=== PATIENT | female | born 1950 | race Caucasian/White ===

== ENCOUNTER → 2016-08-30 | Outpatient (CLI) | payer OTHER ==
--- NOTE | 2016-08-30 14:32 | RAD ---
EXAM DESCRIPTION: Chest,2 Views CLINICAL HISTORY: 66 yearsFemale, EMPHYSEMA COMPARISON: June 07, 2016. IMPRESSION: Heart size and pulmonary vascularity are within normal limits. There is no airspace consolidation, pleural effusion, or pneumothorax. No acute osseous abnormality. Electronically signed by: Joshua Thomas MD 08/30/2016 2:31 PM [facility]
== END | disposition home or self-care (01) ==
LOC: YCFC.O 12:07
PROVIDERS: ATTEND Nurse Practitioner Family
DX: J43.9 Emphysema, unspecified (principal); R06.00 Dyspnea, unspecified; R04.2 Hemoptysis; Z87.891 Personal history of nicotine dependence

== ENCOUNTER 2017-01-08 09:43 | Emergency (ER) | payer OTHER ==
[2017-01-08] MEDS ORDERED: MORPHINE SULFATE INJ 10 MG/ML VIAL IM ONE ×2 (10:03→11:02)
[2017-01-08] MEDS ORDERED: ONDANSETRON ODT 8 MG TAB SL ONE (10:03)
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
[2017-01-08] MEDS ORDERED: CYCLOBENZAPRINE HCL 10 MG TAB PO ONE (10:51)
[2017-01-08 11:16] VITALS: O2SAT 90
[2017-01-08 12:00] VITALS: BP 133/72
== END 2017-01-08 11:56 | disposition home or self-care (01) ==
LOC: ER 09:43
DX: G44.209 Tension-type headache, unspecified, not intractable (principal); J44.9 Chronic obstructive pulmonary disease, unspecified; I25.2 Old myocardial infarction; I11.0 Hypertensive heart disease with heart failure; I50.9 Heart failure, unspecified; Z88.6 Allergy status to analgesic agent; Z88.0 Allergy status to penicillin; Z88.4 Allergy status to anesthetic agent
CPT/HCPCS: J2270 ×2

== ENCOUNTER → 2017-01-13 | Outpatient (CLI) | payer OTHER | END | disposition home or self-care (01) | LOC: YCFC.O 10:02 | PROVIDERS: ATTEND Anesthesiology Pain Medicine | DX: Z79.891 Long term (current) use of opiate analgesic (principal) ==

== ENCOUNTER → 2017-01-16 | Outpatient (CLI) | payer OTHER | END | disposition home or self-care (01) | LOC: YCFC.O 10:46 | PROVIDERS: ATTEND Anesthesiology Pain Medicine | DX: Z79.891 Long term (current) use of opiate analgesic (principal) ==

== ENCOUNTER 2017-06-18 09:51 | Emergency (ER) | payer OTHER ==
--- NOTE | 2017-06-18 09:53 | ED.PDOC ---
History of Present Illness - General Chief Complaint: Respiratory Problem Stated Complaint: sob Time Seen by Provider: 06/18/17 09:53 Source: patient, RN notes reviewed, Vital Signs reviewed Additional Information: Pt states she is running out of meds. She notices some increased SOB and cough over the past few days. She states she quit smoking over 10 years ago but she is exposed to 2nd hand smoke at home. - History of Present Illness Timing/Duration: other - past 3 days Severity: moderate Possible Cause: occasional episodes Improving Factors: nothing Worsening Factors: movement Associated Symptoms: cough, shortness of breath Respiratory Risk Factors: no cause identified Allergies/Adverse Reactions: Allergies Acetaminophen [From Darvocet-N] Allergy (Verified 06/18/17 10:08) Rash Codeine Allergy (Verified 06/18/17 10:08) Unknown Nalbuphine [From Nubain] Allergy (Verified 06/18/17 10:08) Vomitting Penicillins Allergy (Verified 06/18/17 10:08) Rash Propoxyphene [From Darvocet-N] Allergy (Verified 06/18/17 10:08) Rash Home Medications: Ambulatory Orders Albuterol Inhaler [Proventil Hfa Inhaler] 2 puff INH Q4H #1 inh 10/01/15 Albuterol Sulfate Nebs [Proventil Nebs] 2.5 mg INH AC #50 vial 10/01/15 Cyclobenzaprine HCl [Flexeril] 10 mg PO Q8HR PRN #15 tab 01/08/17 Cyclobenzaprine HCl [Flexeril] 10 mg PO TID 01/08/17 Albuterol Inhaler [Ventolin Hfa Inhaler] 2 puff INH QID PRN #1 inh 06/18/17 Doxycycline (Monohydrate) [Doxycycline Monohydrate] 100 mg PO BID 7 Days #14 cap 06/18/17 predniSONE 40 mg PO DAILY 5 Days #10 tab 06/18/17 Review of Systems - Review of Systems Constitutional: States: see HPI EENTM: States: no symptoms reported Respiratory: States: see HPI, cough, short of breath Cardiology: States: no symptoms reported Gastrointestinal/Abdominal: States: no symptoms reported Genitourinary: States: no symptoms reported Musculoskeletal: States: no symptoms reported Skin: States: no symptoms reported Neurological: States: no symptoms reported Endocrine: States: no symptoms reported Hematologic/Lymphatic: States: no symptoms reported Past Medical History (General) - Patient Medical History Hx Stroke: No Hx Asthma: Yes Hx of COPD: Yes Hx Cardiac Disorders: Yes - [place] 26 YRS AGO Hx Congestive Heart Failure: Yes Hx Hypertension: Yes Hx Diabetes: No Hx MRSA: No - Vaccination History Hx Influenza Vaccination: No Hx Pneumococcal Vaccination: Yes - unsure of date - Social History Hx Tobacco Use: Yes Family Medical History - Family History Father Living Status: Cause of : brain Hx Family Cancer: Yes - prostate, lung, brain Physical Exam - Physical Exam General Appearance: Alert, Other - mild purse lipped breathing. Speaking in 3 to 5 word sentences. Occasional cough. 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 My interpretation: No obvious focal consolidation. Pt given Prednisone, Doxycycline, and Albuterol in ER and discharged with Rx for these meds as well. Pt stable for discharge home with strict return precautions. Departure - Departure Clinical Impression: COPD with exacerbation Time of Disposition: 10:59 Disposition: Discharge to Home or Self Care Condition: Fair Departure Forms: ED Discharge - Pt. Copy, Patient Portal Self Enrollment Instructions: DI for Chronic Obstructive Pulmonary Disease Referrals: Leah Rojas NP [Family Provider] - 1-5 Days Prescriptions: Albuterol Inhaler [Ventolin Hfa Inhaler] 2 puff INH QID PRN #1 inh PRN Reason: Shortness Of Breath/Wheezing Doxycycline (Monohydrate) [Doxycycline Monohydrate] 100 mg PO BID 7 Days #14 cap predniSONE 40 mg PO DAILY 5 Days #10 tab Home Medications: Ambulatory Orders Albuterol Inhaler [Proventil Hfa Inhaler] 2 puff INH Q4H #1 inh 10/01/15 Albuterol Sulfate Nebs [Proventil Nebs] 2.5 mg INH AC #50 vial 10/01/15 Cyclobenzaprine HCl [Flexeril] 10 mg PO Q8HR PRN #15 tab 01/08/17 Cyclobenzaprine HCl [Flexeril] 10 mg PO TID 01/08/17 Albuterol Inhaler [Ventolin Hfa Inhaler] 2 puff INH QID PRN #1 inh 06/18/17 Doxycycline (Monohydrate) [Doxycycline Monohydrate] 100 mg PO BID 7 Days #14 cap 06/18/17 predniSONE 40 mg PO DAILY 5 Days #10 tab 06/18/17 Additional Instructions: Take full course of Prednisone and antibiotics. Follow-up with Primary care provider within 3 to 5 days. Return to ER if condition worsens.
[2017-06-18] MEDS ORDERED: predniSONE 10 MG TAB PO ONE (10:10)
[2017-06-18] MEDS ORDERED: DOXYCYCLINE HYCLATE CAP 100 MG CAP PO ONE (10:11)
[2017-06-18 10:12] VITALS: TEMP 98.8
[2017-06-18] MEDS ORDERED: ALBUTEROL INH (ER DISPENSE) 1 EA INH INH ONE ×2 (10:30)
[2017-06-18] MEDS ORDERED: ALBUTEROL INHALER 64 PUFF/8GM INH SCH (10:30)
[2017-06-18 10:42] VITALS: O2SAT 94
[2017-06-18 10:50] VITALS: BP 158/93
--- NOTE | 2017-06-18 10:52 | RAD ---
EXAM DESCRIPTION: Chest,2 Views CLINICAL HISTORY: suspect COPD exacerbation COMPARISON: None available FINDINGS: The cardiomediastinal silhouette is unremarkable. There is no airspace consolidation or pleural effusion. The lung volumes are at the upper limits of normal range. There is no pneumothorax or acute fracture. IMPRESSION: Upper normal lung volumes suggestive of COPD, but no acute intrathoracic abnormality. Electronically signed by: Ankit Guajardo MD 06/18/2017 10:51 AM [facility]
== END 2017-06-18 10:50 | disposition home or self-care (01) ==
LOC: ER 09:51
DX: J44.1 Chronic obstructive pulmonary disease with (acute) exacerbation (principal); J45.998 Other asthma; I50.9 Heart failure, unspecified; I11.0 Hypertensive heart disease with heart failure; I25.2 Old myocardial infarction; Z79.899 Other long term (current) drug therapy; Z77.22 Contact with and (suspected) exposure to environmental tobacco smoke (acute) (chronic); Z87.891 Personal history of nicotine dependence; Z88.6 Allergy status to analgesic agent; Z88.5 Allergy status to narcotic agent; Z88.0 Allergy status to penicillin; Z88.8 Allergy status to other drugs, medicaments and biological substances
CPT/HCPCS: 71020; 94664; 94760; J7512

== ENCOUNTER → 2019-02-12 | Outpatient (CLI) | payer OTHER ==
--- NOTE | 2019-02-12 16:30 | RAD ---
EXAM DESCRIPTION: Foot,Left 3 Views CLINICAL HISTORY: PAIN IN LEFT FOOT COMPARISON: None Available. TECHNIQUE: AP, LATERAL, AND OBLIQUE FINDINGS: The visualized bones appear well mineralized. No acute fracture or dislocation. Focal soft tissue swelling is noted adjacent to the fifth metatarsophalangeal joint. IMPRESSION: Focal soft tissue swelling is noted adjacent to the fifth metatarsophalangeal joint. No acute bony abnormality. Electronically signed by: Lea Zambrano MD 02/12/2019 4:29 PM CDT
--- NOTE | 2019-02-12 16:30 | RAD ---
EXAM DESCRIPTION: Ankle,Left 3 Views CLINICAL HISTORY: 68 years Female, PAIN IN LEFT ANKLE AND JOINTS OF LEFT FOOT COMPARISON: None available. TECHNIQUE: AP, oblique and lateral radiographs. FINDINGS: The visualized bones appear well mineralized. No acute fracture or dislocation. The ankle mortise is intact. The soft tissues appear grossly unremarkable. IMPRESSION: No acute traumatic abnormality is noted in the left ankle. Electronically signed by: Lea Zambrano MD 02/12/2019 4:28 PM CDT
== END ==
LOC: RAD 07:54
PROVIDERS: ATTEND Orthopaedic Surgery
DX: M25.572 Pain in left ankle and joints of left foot (principal); M79.672 Pain in left foot; M79.9 Soft tissue disorder, unspecified

== ENCOUNTER 2019-03-12 10:25 | Emergency (ER) | payer OTHER ==
[2019-03-12] MEDS ORDERED: IPRATROPIUM/ALBUTEROL 3 ML VIAL NEB ONE (10:29)
[2019-03-12] MEDS ORDERED: HYDROmorphone HCL INJ 2 MG/ML VIAL IV ONE (10:30)
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
--- NOTE | 2019-03-12 12:01 | RAD ---
EXAM DESCRIPTION: Chest,1 View CLINICAL HISTORY: chest pain COMPARISON: 30 August 2016 TECHNIQUE: AP portable chest FINDINGS: The lungs are free of acute infiltrate or evidence of an effusion. The heart is within range of normal. IMPRESSION: Normal one view chest. Electronically signed by: Tyrone Brock MD 03/12/2019 11:59 AM CDT
--- NOTE | 2019-03-12 12:03 | RAD ---
EXAM DESCRIPTION: Ribs,Left 3 Views CLINICAL HISTORY: chest wall pain COMPARISON: None. TECHNIQUE: 3 views left FINDINGS: No pneumothorax is detected. The exam reveals deformity of the left fifth rib. This felt to be the result of a rib fracture. No further rib injury is seen. IMPRESSION: Left fifth lateral rib fracture. Electronically signed by: Tyrone Brock MD 03/12/2019 12:02 PM CDT
[2019-03-12 12:34] VITALS: BP 140/78; TEMP 98.9; O2SAT 96
== END 2019-03-12 12:35 | disposition home or self-care (01) ==
LOC: ER 10:25
DX: S22.32XA Fracture of one rib, left side, initial encounter for closed fracture (principal); J44.9 Chronic obstructive pulmonary disease, unspecified; R00.0 Tachycardia, unspecified; I25.2 Old myocardial infarction; I50.9 Heart failure, unspecified; I11.0 Hypertensive heart disease with heart failure; I25.10 Atherosclerotic heart disease of native coronary artery without angina pectoris; X50.9XXA Other and unspecified overexertion or strenuous movements or postures, initial encounter; Y92.9 Unspecified place or not applicable; Z79.899 Other long term (current) drug therapy; Z88.6 Allergy status to analgesic agent; Z88.5 Allergy status to narcotic agent; Z88.0 Allergy status to penicillin
CPT/HCPCS: 71045; 71101; 80053; 83880; 84484; 85025; 93005; 94640; J1170; J7620

== ENCOUNTER → 2019-03-22 | Outpatient (CLI) | payer OTHER ==
--- NOTE | 2019-03-22 17:23 | CT ---
Procedure: CT LUNG SCREENING Exam Date: 03/22/2019. Ordering Provider: Jason Cho Clinical Indication: PERSONAL HISTORY OF NICOTINE DEPENDENCE smoking cessation for 17 years. Approximately 100 pack-year history. This patient meets eligibility criteria for low-dose CT lung cancer screening. Comparison: Chest x-ray 03/12/2019. Technique: Using a multislice scanner, sequential helical axial imaging was obtained in the thorax, 2.5 mm thickness, 2.5 mm separation, from the level of the thoracic inlet through the lung bases without IV contrast. A low dose protocol was utilized for BMI less than 30: BMI: 27.4. CTDI: 1.76 mGy. 120. kVp. 45 mA. DLP 65.0 mGy-centimeters. 2D sagittal and coronal reconstructed images, 6.0 mm thickness, were obtained. This exam was performed according to our departmental dose optimization program which includes use of automated exposure control, adjustment of the mA and/or kV according to patient size and/or use of iterative reconstruction technique. Nodule measurements under 10 mm are given as mean value of 3 axes diameters. FINDINGS: Lungs and large airways: Relatively uniform bilateral parenchymal blebs in a centrilobular distribution more prevalent in the upper lung deshpande. 3 mm solid nodule in the subpleural lateral right upper lobe on axial series 2, image 49. Fissural nodules less than 4 mm on the right horizontal fissure on image 2/56 and 2/57. Fissural 3.9 mm nodule inferior right horizontal fissure abutting the right lower lobe on image 2/77. Minimal groundglass density in the posterior inferior right hilar recess. Minimal posterior dependent atelectasis left base. Posterior dependent atelectasis right posterior recess at the base. 3.5 mm solid nodule abutting the pleura posterior recess 3 mm on image 2/86. 4.1 cm nodule solid subpleural lateral left lower lobe on image 2/90 . Linear shaped nodule or scar or para fissural nodule 3 mm in the lateral subpleural lingula on image 2/40 pleural-parenchymal scarring inferior lingula and inferior right middle lobe. Small solid 2 mm nodules lateral left lower lobe possibly part of subsegmental fissure is on images 2/81 and 2/85 Pleura and space: No calcification but bilateral multifocal pleural thickening with no effusion or pneumothorax. Mediastinum and katrina: evaluation limited by low dose technique and lack of IV contrast. No enlarged nodes or dominant soft tissue masses. Heart and great vessels: Atherosclerotic coronary artery calcifications, stents, and atherosclerotic calcifications in the breasts cephalic vessels and aorta. Chest wall, lower neck, axillae: Evaluation also limited by same factors as described above. Bilateral axillary lymph nodes. Upper abdomen: Evaluation limited by low-dose technique. No free air or free fluid. Gallbladder partially visualized. Normal size and density of the spleen and adrenal glands. Osseous structures: Evaluation limited by low dose MIP technique. Multiple levels of thoracic spondylosis. Arthrosis bilateral sternoclavicular joints and in the manubriosternal junction. IMPRESSION: 1. Multiple solid nodules bilaterally with the largest nodule 4.1 mm diameter. Multiple para fissural nodules bilaterally. Also areas of atelectasis and pleural parenchymal scarring. Centrilobular type emphysema. [facility] Best Practice recommendations:. Please see below for Lung RADS category and FOLLOW-UP.* *Lung RADS category CATEGORY 2- Nodules with a very low likelihood (less than 1%) of becoming a clinically active cancer due to size or lack of growth. Nodules: Perifissural nodule(s) < 10 mm. (526mm3). Solid or part solid nodule(s) less than 6mm (113.1 mm3), new solid nodule less than 4mm (33.5 mm3). Ground glass nodule(s) less than 30mm (59133.2 mm3) or unchanged or slow growing ground glass nodule 30mm or greater. Cat 3 or 4 nodule unchanged for 3 or more months. FOLLOW-UP: Continue annual screening with a Low Dose Chest CT in 12 months for re-evaluation. 2. Patient imaging record at this facility showing most recent breast imaging in May 2016. If patient is not enrolled in a breast mammography screening program elsewhere in the past 12 months, consider re-enrolling patient and breast mammographic screening at this facility. Electronically signed by: Nicholas Nolan MD 03/22/2019 5:22 PM CDT
== END ==
LOC: CT 09:00
PROVIDERS: ATTEND Family Medicine
DX: Z87.891 Personal history of nicotine dependence (principal); R91.8 Other nonspecific abnormal finding of lung field

== ENCOUNTER 2019-04-29 05:42 | Day surgery (SDC) | payer MEDICARE, MEDICAID ==
--- NOTE | 2019-04-27 14:22 | RAD ---
EXAM DESCRIPTION: Chest,2 Views CLINICAL HISTORY: 68 years Female, PREOP COMPARISON: March 12, 2019 FINDINGS: Heart size and pulmonary vessels are within normal limits. There is no pneumothorax or pleural effusion. The lungs are clear bilaterally. The soft tissues are unremarkable. Left lateral fifth rib fracture better demonstrated on the March 12, 2019 examination. Eventration of the right diaphragm IMPRESSION: No acute cardiopulmonary abnormality. Electronically signed by: Joe Carmen MD 04/27/2019 2:20 PM [facility]
[2019-04-29] MEDS ORDERED: PROPOFOL 200 MG/20 ML VIAL IV ONE (07:00)
[2019-04-29] MEDS ORDERED: LIDOCAINE 1% 10 ML VIAL INJ ONE (07:00)
[2019-04-29] MEDS ORDERED: LACTATED RINGERS 1,000 ML ONE (07:02)
[2019-04-29] MEDS ORDERED: LACTATED RINGERS 1,000 ML IVS ONE (08:42)
--- NOTE | 2019-04-29 11:21 | OP ---
DATE OF PROCEDURE: 04/29/19 PREOPERATIVE DIAGNOSIS: 1. Screening colonoscopy. POSTOPERATIVE DIAGNOSIS: 1. Colonic polyp. PROCEDURE: 1. Colonoscopy. SURGEON: Wild Jha MD ANESTHESIA: General. FINDINGS: There was probably a 3.5 to 4 mm polyp in the descending colon near the sigmoid that was removed entirely with a cold snare. COMPLICATIONS: None. ESTIMATED BLOOD LOSS: None. CONDITION: Stable. PLAN: Discharge. INDICATION: As stated. PROCEDURE: She was made comfortable in the lateral position. General anesthesia was induced. Digital rectal exam was normal. The scope was inserted. At about 50 cm, we could not get passed. I put her on her back. We manipulated and finally got through a turn and proceeded up to the splenic flexure. I put her back on her side and was able to complete the colonoscopy identifying the ileocecal valve and appendiceal orifice. Upon withdrawal, there was no evidence of significant polyps in the ascending, transverse and descending colon. There was one area of a large fold that we could not see around on the left, but no obvious tumors there. We then identified the polyp between 65 and 70 cm on our scope, but anatomically in the mid to distal descending colon. This was removed with a cold snare. The remainder of the sigmoid exam was normal but for some diverticulosis. The patient tolerated the procedure and was taken to Recovery to be discharged. #[id number] [facility]
[2019-04-29 12:15] VITALS: BP 162/85; TEMP 98.5; O2SAT 97
== END 2019-04-29 12:30 | disposition home or self-care (01) ==
LOC: AMB 05:42
PROVIDERS: ATTEND Surgery
DX: Z12.11 Encounter for screening for malignant neoplasm of colon (principal); D12.7 Benign neoplasm of rectosigmoid junction; K57.30 Diverticulosis of large intestine without perforation or abscess without bleeding; J44.9 Chronic obstructive pulmonary disease, unspecified; J45.909 Unspecified asthma, uncomplicated; D64.9 Anemia, unspecified; Z88.0 Allergy status to penicillin; Z88.5 Allergy status to narcotic agent; Z88.8 Allergy status to other drugs, medicaments and biological substances; Z90.710 Acquired absence of both cervix and uterus
CPT/HCPCS: 00812; 36415; 45385; 71046; 80048; 85014; 85018; 88305; 93005; J3490; J7120

== ENCOUNTER → 2019-09-01 | Outpatient (CLI) | payer MEDICARE, MEDICAID ==
--- NOTE | 2019-09-02 07:57 | MRI ---
Study: MRI of the Left Shoulder. Indication: DECREAED RANGE OF SHOULDER MOVEMENT Technique: Multiplanar, multi sequence MRI of the left shoulder was obtained without intravenous contrast. Comparison: None. Findings: Moderate AC joint osteoarthritis. Type II acromion with mild lateral downsloping. Small-volume subacromial/subdeltoid bursal fluid. Supraspinatus and infraspinatus tendinosis with irregular intermediate to high grade articular tearing throughout both tendon insertions but somewhat difficult evaluate due to motion degradation. No complete rupture. Adjacent multifocal subcortical cystic change greater tuberosity Subscapularis tendinosis and attenuation. Minimal atrophy and grade 1 fatty infiltration rotator cuff musculature. Long head biceps tendon intact. Circumferential labral truncation and degeneration. Subchondral cystic change anterior superior glenoid with overlying grade 4 chondrosis. Grade 2 and 3 chondral loss throughout the remainder of the joint space. Tiny osteophytes. No acute fracture. Impression: Supraspinatus and infraspinatus tendinosis with irregular intermediate to high grade articular tearing throughout both tendon insertions. Subscapularis tendinosis and attenuation. Minimal atrophy and grade 1 fatty infiltration rotator cuff musculature. Circumferential labral truncation and degeneration. Moderate glenohumeral joint osteoarthritis. Moderate AC joint osteoarthritis. Electronically signed by: Олег Mazariegos MD 09/02/2019 7:56 AM CDT
== END ==
LOC: MRI 10:00
PROVIDERS: ATTEND Nurse Practitioner Family
DX: M75.102 Unspecified rotator cuff tear or rupture of left shoulder, not specified as traumatic (principal); M62.512 Muscle wasting and atrophy, not elsewhere classified, left shoulder; M75.92 Shoulder lesion, unspecified, left shoulder; S43.432A Superior glenoid labrum lesion of left shoulder, initial encounter; M19.012 Primary osteoarthritis, left shoulder

== ENCOUNTER → 2020-07-28 | Outpatient (CLI) | payer MEDICARE, OTHER ==
--- NOTE | 2020-07-28 15:52 | RAD ---
EXAM DESCRIPTION: Wrist,Right 3 Views CLINICAL HISTORY: PAIN COMPARISON: None. TECHNIQUE: 3 views right FINDINGS: I see no bone joint or soft tissue abnormality. IMPRESSION: Normal right wrist. Electronically signed by: Tyrone Brock MD 07/28/2020 3:50 PM [facility]
--- NOTE | 2020-07-28 16:06 | RAD ---
EXAM DESCRIPTION: Wrist,Left 3 Views CLINICAL HISTORY: 69 years, Female, PAIN COMPARISON: None TECHNIQUE: AP/ lateral/ oblique views of the left wrist FINDINGS: Left wrist study shows no fracture or dislocation. Mild osteopenia is present. Carpal relationships are well-maintained. No significant arthritic changes are observed. IMPRESSION: 1. No acute injury to the left wrist noted. Electronically signed by: Brandyn Garner MD 07/28/2020 4:04 PM [facility]
== END ==
LOC: RAD 08:43
PROVIDERS: ATTEND Orthopaedic Surgery
DX: M25.531 Pain in right wrist (principal); M25.532 Pain in left wrist